=== PATIENT | female | born 1930 | race Caucasian/White ===

== ENCOUNTER → 2016-10-30 11:15 | Outpatient (CLI) | payer MEDICARE, BC ==
[~2016-10-30] VITALS: Ht 167.6 cm; Wt 59.1 kg
--- NOTE | ~2016-10-30 | OP ---
PATIENT NAME: NETTA BRITT MEDICAL RECORD: [id number] :[birth year] LOCATION:D.CAT ADMISSION DATE: SURGEON: YUE PRIETO MD DATE OF OPERATION: 10/30/2016 PREOPERATIVE DIAGNOSES: 1. End-of-life generator. 2. Hypertension. 3. Hypercholesterolemia. 4. Bradycardia. POSTOPERATIVE DIAGNOSES: 1. End-of-life generator. 2. Hypertension. 3. Hypercholesterolemia. 4. Bradycardia. PROCEDURE: Left subclavian vein pacemaker generator exchange. SURGEON: Yue Prieto MD REPORT OF PROCEDURE: The patient's left chest was prepped and draped in sterile fashion. A 20 mL of 1% lidocaine was infused into the surrounding tissues. A transverse skin incision was made overlying the pacemaker. We dissected pacemaker free from the underlying tissues including the indwelling leads. These leads were removed from the pacemaker and tested and showed to be working appropriately. The leads were placed into a new pacemaker. The pacemaker was then placed in to the subcutaneous pouch. This was sutured into place with a single 0 Tycron. The subcutaneous tissues were irrigated out and then reapproximated with interrupted 3-0 Vicryls and the skin was closed with running subcutaneous 5-0 Monocryl. COMPLICATIONS: None. CONDITION: Stable. ANESTHESIA: Local MAC. BLOOD LOSS: Minimal. TRANSINT:[id number] Voice Confirmation ID: [id number] DOCUMENT ID: [id number] YUE PRIETO MD CC: MIKEL GREEN M.D. [id number] DICTATION DATE: 10/30/16 1525 AGRICULTURE DEPARTMENT CHAIR: 10/30/162007 [facility] [address] [id number]
--- NOTE | ~2016-10-30 | HEMODYNAMI ---
PATIENT:NETTA BRITT MEDICAL RECORD: [id number] : [birth year] LOCATION:MEG ADMISSION DATE: 10/30/16 Generatedon:10/30/201615:24 Patient name: NETTA BRITT Patient #: [id number] SSN: : Date of study: 10/30/2016 Page: Of Hemodynamic Procedure Report Patient Data Patient Demographics Procedure consent was obtained First Name: NETTA Gender: Female Last Name: BALWINDER : 1930 [facility] Initial: Lorrie Age: 86 year(s) Patient #: [id number] Race: Unknown Additional ID: [id number] Contact details Address: [address] [place] [address] [address] State: [place] City: [facility] [place] Zip code: [address] Past Medical History Allergies Allergen Reaction Date Comments Reported Sulfa drugs 10/30/2016 Admission Admission Data Admission Date: 10/30/2016 Admission Time: 11:15 Procedure Procedure Types Cath Procedure Diagnostic Procedure PPM/ICD Permanent Pacer Generator Exg. Miscellaneous Procedures Moderate Sedation up to 30 minutes Procedure Description Procedure Date Procedure Date: 10/30/2016 Procedure Start Time: 14:50 Procedure Staff Name Function Chetan Ferguson MD Performing Physician Bandar Poole MD Assisting physician Nakita Ashton RT Scrub Wm Sterling RN Nurse Salma Machuca RT Monitor Procedure Data Cath Procedure Estimated blood loss: 5 ml Procedure Medications Medication Administration Route Dosage Ancef (1Gm/50ml NS) I.V.P.B 1 g Ancef Irrigation Topical 1 g (1gm/500ml NS) Lidocaine 1% with added to field 20 ml Epi Bupivacaine 0.5% 10 ml 0.9% NaCl I.V. Versed I.V. 1 mg Fentanyl I.V. 50 mcg Versed I.V. 1 mg Fentanyl I.V. 50 mcg Hemodynamics Rest Heart Rate: 65 (bpm) Snapshots Pre Cath Intra NCS Post Cath Vital Signs Time Heart Resp SPO2 NIBP (mmHg) Rhythm Pain Sedation Rate (ipm) (%) Status Level (bpm) 14:53:18 65 16 99 152/73(123) NSR 0 (11) 10(A) , No pain 14:57:38 65 14 98 143/72(110) NSR 0 (11) 10(A) , No pain 15:01:50 64 13 94 144/79(108) NSR 0 (11) 10(A) , No pain 15:06:08 65 15 96 119/58(88) NSR 0 (11) 9(A) , No pain 15:10:24 60 8 93 124/53(98) NSR 0 (11) 9(A) , No pain 15:14:40 60 15 99 132/56(101) NSR 0 (11) 9(A) , No pain 15:19:02 60 16 99 127/47(90) NSR 0 (11) 9(A) , No pain 15:23:22 55 16 100 129/50(105) NSR 0 (11) 10(A) , No pain Medications Time Medication Route Dose Verified Delivered Reason Notes Effecti veness by by 14:51:11 Ancef I.V.P.B 1 g Advent Buffie used for (1Gm/50ml Virgilio Sterling RN procedure NS) 14:55:19 Ancef Topical 1 g Advent Buffie used for Irrigation Virgilio Sterling RN procedure (1gm/500ml NS) 14:55:27 Lidocaine added 20 ml Advent Advent for local 1% with Epi to Virgilio Poole MD anesthetic field 15:00:48 Bupivacaine on 10 ml Advent Advent for local 0.5% field. Virgilio Poole MD anesthetic 15:01:01 0.9% NaCl I.V. kvo Advent Buffie Per ml/hr Virgilio Sterling RN physician 15:01:07 Versed I.V. 1 mg Advent Buffie for Virgilio Sterling RN sedation 15:01:13 Fentanyl I.V. 50 Advent Buffie for mcg Virgilio Sterling RN sedation 15:05:53 Versed I.V. 1 mg Advent Buffie for Virgilio Sterling RN sedation 15:08:35 Fentanyl I.V. 50 Advent Buffie for mcg Virgilio Sterling RN sedation Procedure Log Time Note 14:35:39 Salma Counts RT(R) sent for patient. Start room use. 14:51:11 Ancef (1Gm/50ml NS) 1 g I.V.P.B was administered by Wm Sterling RN; used for procedure; 14:51:46 Time tracking: Regular hours 14:51:49 Plan of Care:Hemodynamics will remain stable., Cardiac rhythm will remain stable., Comfort level will be maintained., Respiratory function will remain adequate., Patient/ family verbilizes understanding of procedure., Procedure tolerated without complication., Recovers from procedure without complications.. 14:51:58 Patient received from Pre/Post Procedure Room to CCL 3 Alert and oriented. Tansferred to table in Supine position. 14:51:59 Warm blankets applied, and veda hugger turned on for patient comfort. 14:51:59 Correct patient and procedure confirmed by team. 14:52:01 Signed procedure consent form obtained from patient. 14:52:01 ECG and BP/O2 sat monitors applied to patient. 14:52:02 Vital chart was started 14:52:03 Full Disclosure recording started 14:52:07 Rhythm: paced 14:52:14 H&P Date Dictated: 10/25/2016 Within 30 days and on chart., H&P Addendum completed by physician on day of procedure. (MUST COMPLETE FOR ALL OUTPATIENTS). 14:52:16 Pre-procedure instructions explained to patient. 14:52:17 Pre-op teaching completed and patient verbalized understanding. 14:52:18 Family in patients room. 14:52:34 Patient NPO since Midnight. 14:52:39 Patient allergic to Sulfa drugs 14:52:42 Is the patient allergic to Iodine/contrast media? No. 14:52:45 Is patient on blood thinner?No 14:52:47 Patient diabetic? No. 14:52:50 Previous problem with sedation/anesthesia? No ? 14:52:51 Snore? No 14:52:52 Sleep apnea? No 14:52:53 Deviated septum? No 14:52:54 Opens mouth fully? Yes 14:53:01 Sticks out tongue? Yes 14:53:02 Airway obstruction? No ? 14:53:04 Dentures? No ? 14:53:42 Patient pain scale 0/10 ?. 14:53:49 IV patent on arrival in left hand with 0.9% NaCl at KVO. 14:53:52 Lab results completed and on chart. 14:53:57 Left chest area was prepped with chlora-prep and draped in sterile fashion 14:53:58 Alarms reviewed by R. N. 14:53:58 Sharps counted by scrub and verified by R.N. 14:55:19 Ancef Irrigation (1gm/500ml NS) 1 g Topical was administered by Wm Sterling RN; used for procedure; 14:55:27 Lidocaine 1% with Epi 20 ml added to field was administered by Bandar Poole MD; for local anesthetic; 14:56:40 Final Timeout: patient, procedure, and site verified with staff and physician. All members of the team are in agreement. 14:56:46 Left chest site verified by team. 14:56:50 Physical assessment completed. ASA score P 2 - A patient with mild systemic disease as per Bandar Poole MD. 14:56:53 Sedation plan: IV Moderate Sedation Versed, Fentanyl 14:57:00 Use device set Pacemaker Set 14:57:07 Cautery Tip Bias Binding Cutter opened to sterile field. 14:57:08 Cautery Pushbutton Pencil opened to sterile field. 14:57:21 3.0 Vicryl Single Pack [id number] opened to sterile field. 14:57:31 5.0 Monocryl PS2 [id number] opened to sterile field. 14:57:44 Medtronic labor union business representative Jaylon Gamaoe present for procedure. 14:57:55 Pre sharps counted by scrub and verified by RN: Sutures: 2 Sponges: 5 Stick needles: 0 Skin needles: 2 Blade: 1 Cautery: 1 14:57:58 Grounding pad site Left thigh. 14:57:59 Grounding pad site free from injury. 14:59:38 Baseline sample Acquired. 15:00:02 Lidocaine 1% w/epi and Bupivacaine 0.5% to left subclavicular area by Bandar Poole MD. 15:00:18 Medtronic Adapta PPM Dual Generator opened to sterile field. 15:00:48 Bupivacaine 0.5% 10 ml on field. was administered by Bandar Poole MD; for local anesthetic; 15:01:01 0.9% NaCl kvo ml/hr I.V. was administered by Wm Sterling RN; Per physician; 15:01:07 Versed 1 mg I.V. was administered by Wm Sterling RN; for sedation; 15:01:13 Fentanyl 50 mcg I.V. was administered by Wm Sterling RN; for sedation; 15:02:15 Incision made to left subclavicular area. 15:02:18 Generator pocket made/opened. 15:05:53 Versed 1 mg I.V. was administered by Wm Sterling RN; for sedation; 15:05:57 PPM Dual was removed.. 15:08:35 Fentanyl 50 mcg I.V. was administered by Wm Sterling RN; for sedation; 15:08:56 Ventricular lead tested. 15:09:13 Atrial lead tested. 15:09:50 PPM Dual was attached to lead(s) and inserted into pocket. 15:11:36 2.0 Ticron Multipack opened to sterile field. 15:11:45 Generator was sutured in place with 2-0 ticron. 15:11:47 5 suture needles added to table. 15:12:25 Device pocket was irrigated with Ancef. 15:12:53 Subcutaneous closure was completed with 3-0 vicryl. 15:14:12 Parameters-- Generator: Mode: AAIR<=>DDDR. Lower Rate: 60bpm. Upper Rate: 130bpm. 15:14:39 Parameters--Ventricular P/R Wave: 5.9mV. Current: 1.6mA; Threshold: 1.0V; Impedence: 721OHMS. 15:14:54 Parameters--Atrial P/R Wave: 1.7mV. Current: 2.0mA; Threshold: 0.7V; Impedence: 634OHMS. 15:15:04 Skin closure was completed with 5-0 monocryl. 15:15:08 Lt Chest incision was dressed with Mepilex dressing. 15:15:21 Mepilex Dressing opened to sterile field. 15:16:36 Post sharps counted by scrub and verified by RN: Sutures: 7 Sponges: 5 Stick needles: 0 Skin needles: 2 Blade: 1 Cautery: 1 15:18:55 Procedure ended.(Physican Out) 15:21:06 Sharps counted by scrub and verified by R.N. 15:21:07 Insertion/operative site no bleeding no hematoma. 15:21:14 Post Chest area:stable, clean and dry 15:21:22 Post-procedure physical assessment completed. ASA score P 2 - A patient with mild systemic disease as per aBndar Poole MD. 15:21:26 Post procedure rhythm: unchanged. 15:21:30 Estimated blood loss: 5 ml 15:21:31 Post procedure instruction explained to patient.Patient verbalizes understanding. 15:21:31 Patient needs reinforcement of post procedure teaching. 15:21:39 Procedure type changed to Cath procedure, Diagnostic procedure, PPM/ICD, Permanent Pacer Generator Exg., Miscellaneous Procedures, Moderate Sedation up to 30 minutes 15:21:44 See physician's report for complete and final results. 15:23:46 Procedure and supply charges have been captured, reviewed, submitted and are correct. 15:24:25 Vital chart was stopped 15:24:27 Report given to Pre/Post Procedure Room. 15:24:30 Patient transfered to Pre/Post Procedure Room with Stretcher. 15:24:33 End room use (Document Last) Device Usage Item Name Manufacture Quantity Catalog Hospital Part Current Minimal L ot# / Number Charge Number Stock Stock Serial# Code Cautery Microtek 1 [id number] 5 [employer] Bias Binding Cutter Cautery Microtek 1 [id number] 5 Pushbutton [employer] Pencil 3.0 Vicryl Ethicon 1 [id number] 5 Single Pack [id number] 5.0 Ethicon 1 [id number] [id number] 5 Monocryl PS2 [id number] Medtronic Medtronic 1 [id number] 5 S N Adapta PPM N [id number] Dual E xp: Generator 1 02-25-2016 2.0 Ticron Ethicon 9 [id number] [id number] 04962 172269 5 Multipack Mepilex Cardinal 1 [id number] [id number] [id number] 5 [facility] Signature Audit [place] Stage Time Signature Unsigned Intra-Procedure 10/30/2016 Salma 3:24:47 PM Counts RT(R) Signatures Monitor : Salma Signature : Counts RT Date : Time : [address] [address] [place] [address]
[~2016-10-30 11:15] MED LIST: BAYER CHEWABLE81 MG PO; CALTRATE 600 M600 M1 PO; CLARITIN 10 MG10 MG PO; HYDROCHLOROTH12.5 M1 PO; HYDROCODON-ACE1 EAC7 PO; LISINOPRIL10 MG PO; MULTIPLE VITAMI1 TA1 PO; NITROSTAT0.3 MG SL; ZOCOR10 MG PO
[2016-10-30 11:47] VITALS: BP 138/60; Ht 167.6 cm; Wt 59.1 kg
[2016-10-30 11:56] LABS: HEMATOCRIT 35.8 % (36.0-48.0); HEMOGLOBIN 11.6 g/dL (12-16); MCH 30.7 pg (26.0-34.0); MCHC 32.4 g/dL (31.0-37.0); MCV 94.7 fL (80.0-100.0); MEAN PLATELET VOLUME 10.8 fL (7.4-10.4); RBC 3.78 10x6/uL (4.00-5.40); RDW 13.4 % (11.5-14.5); WBC 4.5 10x3/uL (4.8-10.8)
[2016-10-30 12:06] LABS: APTT 28.2 SECONDS (22.8-39.4); INR 1.07 (0.85-1.17); PROTIME 13.7 SECONDS (11.6-15.0)
[2016-10-30 12:07] LABS: ANION GAP 12.2 mmol/L (8-16); CARBON DIOXIDE 27.1 mmol/L (21.0-32.0); CREATININE - SERUM 1.5 mg/dL (0.6-1.3); POTASSIUM - SERUM 4.3 mmol/L (3.5-5.1)
[2016-10-30 12:13] LABS: CALCIUM 9.5 mg/dL (8.5-10.1)
--- NOTE | 2016-10-30 15:39 | NUR ---
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 VSS WITH PAIN DENIED. WILL MONITOR
--- NOTE | 2016-10-30 15:52 | NUR ---
PACED AT 50 CHEST PAIN DENIED DSG CDI NO BLEEDING NOTED. DR BRITT AT BEDSIDE.
--- NOTE | 2016-10-30 16:14 | NUR ---
ANATOLIY WITH CLAUDY BUTLER AT BEDSIDE TO ADJUST PACE MAKER AT DR BRITT REQUEST.
--- NOTE | 2016-10-30 16:26 | NUR ---
PIV REMOVED WITH DRESSING APPLIED. PATIENT UP TO GET DRESSED FOR DISCHARGE. VERBAL AND WRITTEN DISCHARGE GONE OVER WITH PATIENT AND SON. CHEST PAIN IS DENIED. LEFT VIA WC TO PARKING FOR TRANSPORT HOME NO DISTRESS
== END | disposition home or self-care (01) ==
LOC: D.CATH 11:15
PROVIDERS: Internal Medicine Cardiovascular Disease
DX: Z45.010 Encounter for checking and testing of cardiac pacemaker pulse generator [battery] (principal); I25.10 Atherosclerotic heart disease of native coronary artery without angina pectoris; I10 Essential (primary) hypertension; I49.5 Sick sinus syndrome; Z01.812 Encounter for preprocedural laboratory examination

== ENCOUNTER 2017-02-25 17:21 | Inpatient (IN) | payer MEDICARE, BC ==
[~2017-02-25] VITALS: Ht 170.2 cm; Wt 66.9 kg
--- NOTE | ~2017-02-25 | HP ---
PATIENT: NETTA BRITT MEDICAL RECORD: [id number] ACCOUNT: [id number] LOCATION:D.MS [id number] : [birth year] ADMISSION DATE: 02/25/17 HISTORY AND PHYSICAL EXAMINATION REASON FOR ADMISSION: Syncopal episode, hypotension and dehydration. HISTORY OF PRESENT ILLNESS: The patient is an 86-year-old female who a few months ago moved to the [place] from [place], [place]. She had continual decline in her memory and her sons felt she was better living here closer to them. She has had a gradual weight loss since that time, losing about 10 pounds prior to moving here. In a structured environment, she has had a better appetite. She was found by one of her sons 3 days ago in her apartment on the floor covered in blankets. She was urinary incontinent. She could not tell him what had happened. EMS came, but she refused to go to the hospital. She was hydrated by her family. Next day, she actually felt better and got up and walked to the diner to eat. Yesterday, she stayed in bed all day long, was very weak and could not get out of bed. She was found to be urinary incontinence again. Her son was concerned she had a UTI. She was brought to the office today and was able to produce urine. Her skin turgor was poor. Her pressure was 80/60. She additionally has a bruise on her glabella from her fall and was confused about recent events. Her creatinine returned at 1.77, BUN of 32. She is now being admitted for hydration, treatment of her hypertension and further evaluation. PAST MEDICAL HISTORY: Senile dementia, hypertension, hyperlipidemia, and osteoarthritis. She had an infected right knee replacement in 2010 and required LTAC stay for IV antibiotics. PAST SURGICAL HISTORY: Right total knee replacement with removal of hardware. SOCIAL HISTORY: She has been for several years and is living alone up until the last 6 months and moved here to be closer to family. She is a lifelong nonsmoker, nondrinker, does not use any illicit drugs. HOME MEDICATIONS: Simvastatin 10 mg with evening meal, fosinopril 10 mg daily, and HCTZ 12.5 mg p.o. q.a.m. ALLERGIES: MORPHINE AND SULFA. FAMILY HISTORY: Noncontributory. REVIEW OF SYSTEMS: CONSTITUTIONAL: About 10-15 pound weight loss due to poor appetite. Denies recent fever. HEENT: No recent visual change, sinus congestion, or sore throat. She has good hearing. She does wear glasses to read. Denies headache. RESPIRATORY: Denies shortness of breath or sputum production. CARDIAC: Denies chest pain or increasing peripheral edema. GASTROINTESTINAL: No nausea, vomiting, change in stools or blood per rectum. GENITOURINARY: Urinary incontinence with some foul odor to her urine recently. GYNECOLOGICAL: No vaginal delivery. MUSCULOSKELETAL: She has generalized arthralgias, but no sciatica symptoms. INTEGUMENT: No rash or itching. She does have as mentioned bruise on her forehead from a recent fall. HISTORY AND PHYSICAL [id number] NETTA BRITT NEUROLOGIC: She is oriented to person, but not place and time. She confused my mother who she knows with my . No history of seizures, vascular headaches, or stroke. PHYSICAL EXAMINATION: VITAL SIGNS: Blood pressure was 80/60 sitting, heart rate 99. She is afebrile. Weighs 124.4 pounds. HEENT: Normocephalic. Eyes are clear. Pupils are reactive. She has a bruise over her glabella. NECK: Supple, without bruits or JVD. CHEST: Fine crackles in the bases. No wheeze. HEART: Regular rate and rhythm with a faint II/ systolic ejection murmur in aortic area. ABDOMEN: Soft. EXTREMITIES: No CC&E. She has well-healed scar over her right anterior knee compartment. NEUROLOGIC: She is oriented to person, but not place and time. Cannot subtract serial 7s. She has no obvious motor deficits except for weakness in her quadriceps making difficult for her to stand. No abnormal reflexes are elicited. LABORATORY DATA: Her BUN is 32, creatinine 1.77, calcium is high at 10. Urine is pending. CBC is normal. ASSESSMENT: 1. Syncopal episode with head injury. 2. Altered mental status. 3. Vascular dementia. 4. Hypotension, symptomatic. 5. Urinary incontinence with possible UTI. 6. History of osteoarthritis of right knee with infected joint. 7. Postmenopausal. 8. Weight loss. PLAN: The patient will be admitted to the hospital for fluid challenge to correct her dehydration and her hypotension. We will hold her hypertensives currently. CT scan of the brain, further workup pending clinical course. TRANSINT:[id number] Voice Confirmation ID: [id number] DOCUMENT ID: [id number] MIKEL DOSS MD at 0342 CC: [id number] DICTATION DATE: 02/25/171707 MARINE PILOT: 02/25/17 1756 ADM [address] [place] [address]
[2017-02-25 18:47] VITALS: BP 120/41; BMI 18.8
[2017-02-25 21:17] VITALS: BP 136/41
[2017-02-26] VITALS (9 sets, daily range): BP systolic 98–160; BP diastolic 42–56; Ht 170.2 cm; Wt 66.9 kg
[2017-02-26 01:20] LABS: APPEARANCE CLOUDY (CLEAR); BILIRUBIN NEGATIVE (NEGATIVE); COLOR YELLOW (YELLOW); GLUCOSE NEGATIVE (NEGATIVE); KETONE NEGATIVE (NEGATIVE); NITRITE POSITIVE (NEGATIVE); PROTEIN 1+ mg/dL (NEGATIVE); UROBILINOGEN NORMAL (NORMAL)
[2017-02-26 01:21] LABS: BACTERIA MANY /hpf (NONE SEEN); EPITHELIAL CELLS 0-5 /hpf (0-5)
[2017-02-26 05:43] LABS: ANION GAP 9.4 mmol/L (8-16); CALCIUM 8.9 mg/dL (8.5-10.1); CARBON DIOXIDE 28.6 mmol/L (21.0-32.0); CREATININE - SERUM 1.6 mg/dL (0.6-1.3)
[2017-02-26 05:45] LABS: HEMATOCRIT 31.7 % (36.0-48.0); HEMOGLOBIN 9.9 g/dL (12-16); MCH 29.6 pg (26.0-34.0); MCHC 31.2 g/dL (31.0-37.0); MCV 94.6 fL (80.0-100.0); MEAN PLATELET VOLUME 11.1 fL (7.4-10.4); PLATELET COUNT 228 10x3/uL (130-400); RBC 3.35 10x6/uL (4.00-5.40); RDW 13.4 % (11.5-14.5); WBC 4.3 10x3/uL (4.8-10.8)
[2017-02-26 07:37] LABS: EOSINOPHILS 3 % (0-7); LYMPHOCYTES 42 % (15-50); MONOCYTES 17 % (2-11); NEUTROPHILS 38 % (40-80); PLATELET ESTIMATE NORMAL; PLATELET MORPHOLOGY GIANT PLTS PRESENT; ROULEAUX OCC
[2017-02-27 04:33] VITALS: BP 165/52
[2017-02-27 06:07] LABS: BASOPHILS 0.6 % (0-2); EOSINOPHILS 5.4 % (0-7); HEMATOCRIT 31.5 % (36.0-48.0); HEMOGLOBIN 9.9 g/dL (12-16); IMMATURE GRANULOCYTES 0.3 % (0-5); LYMPHOCYTES 35.8 % (15-50); MCH 29.6 pg (26.0-34.0); MCHC 31.4 g/dL (31.0-37.0); MCV 94.3 fL (80.0-100.0); MEAN PLATELET VOLUME 11.1 fL (7.4-10.4); MONOCYTES 17.8 % (2-11); NEUTROPHILS 40.1 % (40-80); PLATELET COUNT 219 10x3/uL (130-400); RBC 3.34 10x6/uL (4.00-5.40); RDW 13.3 % (11.5-14.5); WBC 3.5 10x3/uL (4.8-10.8)
[2017-02-27 06:10] LABS: % SATURATION 15 % (15-55); IRON 31 ug/dl (35-150); TOTAL IRON BIND CAPACITY 199 ug/dl (260-445); UNSAT IRON BIND CAPACITY 168 ug/dl (150-375)
[2017-02-27 06:11] LABS: ALBUMIN 2.5 g/dL (3.4-5.0); ANION GAP 10.1 mmol/L (8-16); BILIRUBIN - DIRECT 0.07 mg/dL (0.00-0.30); BILIRUBIN - INDIRECT 0.15 mg/dL (0.00-1.00); BILIRUBIN - TOTAL 0.22 mg/dL (0.2-1.3); CALCIUM 9.2 mg/dL (8.5-10.1); CARBON DIOXIDE 27.1 mmol/L (21.0-32.0); POTASSIUM - SERUM 4.2 mmol/L (3.5-5.1); PROTEIN - SERUM 5.3 g/dL (6.4-8.2)
[2017-02-27 06:12] LABS: FOLATE (FOLIC ACID) - SERUM 15.4 ng/mL (>3.0)
[2017-02-27 06:40] LABS: CREATININE - SERUM 1.1 mg/dL (0.6-1.3)
[2017-02-27 07:54] VITALS: BP 157/61
[2017-02-27 11:38] VITALS: BP 150/49
[2017-02-27 15:55] VITALS: BP 147/52
[2017-02-27 22:12] VITALS: BP 122/33
[2017-02-28 01:32] VITALS: BP 131/35
[2017-02-28 06:33] VITALS: BP 137/41
[2017-02-28 09:20] VITALS: BP 118/43
[2017-02-28 12:20] VITALS: BP 116/46
[2017-02-28 16:34] VITALS: BP 120/48
[2017-02-28 20:54] VITALS: BP 147/47
[2017-03-01 00:53] VITALS: BP 157/67
[2017-03-01 04:00] VITALS: BP 152/87
[2017-03-01] MEDS ORDERED: Levaquin PO (07:40)
[2017-03-01] MEDS ORDERED: FERROUS SULFAT325 MG PO (07:41)
[2017-03-01 08:34] VITALS: BP 122/44
== END 2017-03-01 15:00 | DRG 689 ==
LOC: D.MS 17:21
PROVIDERS: Family Medicine
DX: N39.0 Urinary tract infection, site not specified (principal); G93.41 Metabolic encephalopathy; Z68.1 Body mass index [BMI] 19.9 or less, adult; E44.0 Moderate protein-calorie malnutrition; I95.9 Hypotension, unspecified; E86.0 Dehydration; R55 Syncope and collapse; R32 Unspecified urinary incontinence; F03.90 Unspecified dementia, unspecified severity, without behavioral disturbance, psychotic disturbance, mood disturbance, and anxiety; F01.50 Vascular dementia, unspecified severity, without behavioral disturbance, psychotic disturbance, mood disturbance, and anxiety; N95.9 Unspecified menopausal and perimenopausal disorder; R63.4 Abnormal weight loss; S09.90XA Unspecified injury of head, initial encounter; X58.XXXA Exposure to other specified factors, initial encounter; D63.8 Anemia in other chronic diseases classified elsewhere

== ENCOUNTER 2017-03-01 14:34 | Inpatient (IN) | payer MEDICARE, BC ==
[~2017-03-01] VITALS: Ht 170.2 cm; Wt 58.5 kg
--- NOTE | ~2017-03-01 | RHP ---
PATIENT: NETTA BRITT MEDICAL RECORD: [id number] ACCOUNT: [id number] LOCATION:ROXANA [id number] : [birth year] ADMISSION DATE: 03/01/17 REHABILITATION HISTORY AND PHYSICAL EXAMINATION POST ADMISSION PHYSICIAN EXAMINATION DATE OF ADMISSION: 03/01/2017 ADMITTING DIAGNOSIS: Debility secondary to urinary tract infection. HISTORY OF PRESENT ILLNESS: The patient admitted to inpatient rehabilitation for debility secondary to Escherichia coli urinary tract infection. She is an 86-year-old female patient who few months ago has moved to [facility] from [place]. She has had a continued decline in her memory. Her sons felt that she was better living here closer to them. She has had a gradual weight loss since that time losing about 10 pounds. In a structured environment, she has had a better appetite. She was found by one of her sons, 3 days prior to hospital admit on 02/25/2017 in her apartment, on the floor, covered in blanket. She was incontinent of urine at the time. She cannot tell them what happened. EMS came, but she refused to go to the hospital. She was hydrated by her family. Next day, she actually felt better, got up and walked to dinner to eat. Yesterday, she stayed in bed all day long, was very weak and cannot get out of bed. She is found to be incontinent of urine. Again, her son was concerned for UTI, brought to the office on 02/25/2017, was able to produce some urine. Skin turgor was poor. Blood pressure was 80/60. She additionally had a bruise on her glabella from a fall that she had at home. She was admitted for hydration and treatment of her hypertension. On further evaluation, she was found to have UTI and culture sensitivity of E. coli, was being treated with antibiotic therapy. She is living in her own apartment, was moderately independent with use of rolling walker and independent with ADLs. Her confusion has somewhat cleared. She has not had any urinary incontinence. She is getting up to void at times. She and her family would like to get her back to [facility] and back to her prior level of functioning and better if possible. Comorbidities include hypotension, dehydration, followed altered mental, sick sinus syndrome, dementia, anemia and UTI. PAST MEDICAL HISTORY: Significant for cataracts, urinary incontinence, UTIs, skin cancer, senile dementia, hypertension, hyperlipidemia, osteoarthritis, constipation. PAST SURGICAL HISTORY: Includes right knee total replacement and then removal of hardware, angioplasty, pacemaker, appendectomy, right wrist repair, three left knee repairs, colon resection and hysterectomy. ALLERGIES: No known drug allergies. CURRENT MEDICATIONS: Protonix 40 mg daily; Flonase nasal spray daily; Proscar 5 mg daily; enoxaparin 40 mg daily; Zithromax 500 mg daily; she is on an electrolyte replacement protocol at this time; Flomax 0.4 mg at bedtime; Tamiflu 75 mg b.i.d.; Singulair 10 mg at bedtime; Solu-Medrol 40 mg IV every 12 hours; DuoNeb updrafts; Mucinex D 1 b.i.d.; Phenergan with codeine as needed; Pulmicort 0.5 mg b.i.d.; benzonatate 200 mg t.i.d. and polyethylene glycol 17 grams in 8 ouces of water daily. HABITS: No alcohol or tobacco use. HISTORY AND PHYSICAL [id number] NETTA BRITT FAMILY HISTORY: Noncontributory. SOCIAL HISTORY: The patient wants to returned back home to [facility]. REVIEW OF SYSTEMS: Generally does complain of weakness. She denies cold, cough, congestion. She denies chest pain. PHYSICAL EXAMINATION: VITAL SIGNS: Stable, afebrile. GENERAL: Alert female, in no distress upon exam. HEENT: Normocephalic and atraumatic. Mucosa is moist. NECK: Supple. No organomegaly. LUNGS: Clear at this time. HEART: Regular rate and rhythm. ABDOMEN: Benign. EXTREMITIES: No clubbing, cyanosis or edema. NEUROLOGIC: Intact. In questioning at this time, she does obviously have some problems with short-term memory loss. LABORATORY DATA: Her white count is 7.4, H&H 13 and 38, platelet count is noted to be 167. Her sodium is 135, potassium 4.2, BUN and creatinine of 24 and 1.0, and blood sugar 75. ASSESSMENT: This is an 86-year-old female patient admitted to rehab with a working diagnosis of debility secondary to UTI. The patient has potential to make improvement in at least 2 of the following multidisciplinary therapies including, but not limited to physical, occupational, respiratory, speech, nutritional services, prosthetics and orthotics. Given her complex condition and risk for more complications, rehabilitation services cannot be provided at a lower level of care such as a jail facility. PLAN: 1. Admit to [facility] for intensive inpatient therapy to include the following disciplines: A. Physical therapy to improve gait, all transfer skills and bed mobility to a modified independent level. B. Occupational therapy to improve activities of daily living to a modified independent level. C. Case management to assist with discharge planning. D. Nutrition to assist with nutritional needs. E. Rehabilitation nursing to assist in monitoring the patient's underlying medical conditions and to assist with any type of bowel or bladder management. 2. The patient's current medication and medical care will be continued. 3. The patient will be placed on standard fall precautions. 4. The patient's estimated length of stay is approximately 7 to 10 days. 5. We will discuss this patient during care team staff meeting this week. TRANSINT:[id number] Voice Confirmation ID: [id number] DOCUMENT ID: [id number] SILVIO notes whether there has been none or any medical/functional HISTORY AND PHYSICAL [id number] NETTA BRITT change since admission: - No change since PAS SILVIO attests patient continues to be appropriate for IRF: - Continues to meet Criteria for IRF ROSANNE BRYSON MD at 1020 CC: [id number] DICTATION DATE: 03/02/17 1139 LICENSED APPRAISER: 03/02/17 1257 ADM IN [facility] [address] [id number]
[~2017-03-01 14:34] MED LIST changes: +FERROUS SULFAT325 MG PO; +Levaquin PO
[2017-03-01 16:24] VITALS: BP 121/42; BMI 20.2
[2017-03-01 19:00] VITALS: BP 103/46
[2017-03-02 07:09] LABS: BASOPHILS 0.4 % (0-2); EOSINOPHILS 3.5 % (0-7); HEMATOCRIT 33.2 % (36.0-48.0); HEMOGLOBIN 10.6 g/dL (12-16); IMMATURE GRANULOCYTES 0.2 % (0-5); LYMPHOCYTES 33.5 % (15-50); MCH 29.4 pg (26.0-34.0); MCHC 31.9 g/dL (31.0-37.0); MCV 92.2 fL (80.0-100.0); MEAN PLATELET VOLUME 10.6 fL (7.4-10.4); MONOCYTES 18.3 % (2-11); NEUTROPHILS 44.1 % (40-80); PLATELET COUNT 255 10x3/uL (130-400); RDW 13.2 % (11.5-14.5); WBC 5.1 10x3/uL (4.8-10.8)
[2017-03-02 07:18] LABS: ANION GAP 13.2 mmol/L (8-16); CALCIUM 9.9 mg/dL (8.5-10.1); CARBON DIOXIDE 27.3 mmol/L (21.0-32.0); CREATININE - SERUM 1.1 mg/dL (0.6-1.3); POTASSIUM - SERUM 4.5 mmol/L (3.5-5.1)
[2017-03-02 08:51] VITALS: BP 158/48
[2017-03-02 11:11] VITALS: Ht 170.2 cm; Wt 58.5 kg
[2017-03-02 20:00] VITALS: BP 159/64
[2017-03-03 08:07] VITALS: BP 148/52
[2017-03-03 19:54] VITALS: BP 107/43
[2017-03-04 07:45] VITALS: BP 136/59
[2017-03-04 20:50] VITALS: BP 115/38
[2017-03-05 08:12] VITALS: BP 112/95
[2017-03-05 21:25] VITALS: BP 123/40
[2017-03-06 07:18] LABS: BASOPHILS 0.2 % (0-2); EOSINOPHILS 3.3 % (0-7); HEMOGLOBIN 10.8 g/dL (12-16); IMMATURE GRANULOCYTES 0.4 % (0-5); LYMPHOCYTES 31.2 % (15-50); MCH 29.8 pg (26.0-34.0); MCHC 31.8 g/dL (31.0-37.0); MCV 93.7 fL (80.0-100.0); MEAN PLATELET VOLUME 10.4 fL (7.4-10.4); MONOCYTES 22.1 % (2-11); NEUTROPHILS 42.8 % (40-80); PLATELET COUNT 255 10x3/uL (130-400); RBC 3.63 10x6/uL (4.00-5.40); RDW 13.6 % (11.5-14.5); WBC 4.6 10x3/uL (4.8-10.8)
[2017-03-06 07:48] LABS: ANION GAP 10.6 mmol/L (8-16); CARBON DIOXIDE 29.7 mmol/L (21.0-32.0); CREATININE - SERUM 1.3 mg/dL (0.6-1.3); POTASSIUM - SERUM 4.3 mmol/L (3.5-5.1)
[2017-03-06 09:16] VITALS: BP 145/49
[2017-03-06 22:00] VITALS: BP 119/39
[2017-03-07 07:57] VITALS: BP 133/48
[2017-03-07 21:05] VITALS: BP 132/50
[2017-03-08 05:53] LABS: BASOPHILS 0.2 % (0-2); EOSINOPHILS 3.1 % (0-7); HEMATOCRIT 31.8 % (36.0-48.0); HEMOGLOBIN 10.1 g/dL (12-16); IMMATURE GRANULOCYTES 0.2 % (0-5); LYMPHOCYTES 30.8 % (15-50); MCH 29.4 pg (26.0-34.0); MCHC 31.8 g/dL (31.0-37.0); MCV 92.7 fL (80.0-100.0); MEAN PLATELET VOLUME 10.3 fL (7.4-10.4); MONOCYTES 18.2 % (2-11); NEUTROPHILS 47.5 % (40-80); PLATELET COUNT 230 10x3/uL (130-400); RBC 3.43 10x6/uL (4.00-5.40); RDW 13.8 % (11.5-14.5); WBC 4.8 10x3/uL (4.8-10.8)
[2017-03-08 06:04] LABS: ANION GAP 9.9 mmol/L (8-16); CALCIUM 9.7 mg/dL (8.5-10.1); CARBON DIOXIDE 29.6 mmol/L (21.0-32.0); CREATININE - SERUM 1.3 mg/dL (0.6-1.3); POTASSIUM - SERUM 4.5 mmol/L (3.5-5.1)
[2017-03-08 07:43] VITALS: BP 148/73
[2017-03-08 20:30] VITALS: BP 96/45
[2017-03-09 08:25] VITALS: BP 150/51
[2017-03-09 19:45] VITALS: BP 99/44
[2017-03-10 08:00] VITALS: BP 155/64
[2017-03-10 20:05] VITALS: BP 117/47
[2017-03-11 08:00] VITALS: BP 142/74
[2017-03-11 19:30] VITALS: BP 109/43
[2017-03-12] MEDS ORDERED: PATIENT'S OWN MEDICA PO (09:20)
[2017-03-12 10:07] VITALS: BP 114/51
[2017-03-12 19:17] VITALS: BP 127/43
[2017-03-13 06:42] LABS: BASOPHILS 0.4 % (0-2); EOSINOPHILS 2.7 % (0-7); HEMATOCRIT 32.9 % (36.0-48.0); HEMOGLOBIN 10.6 g/dL (12-16); IMMATURE GRANULOCYTES 0.2 % (0-5); LYMPHOCYTES 34.7 % (15-50); MCH 29.6 pg (26.0-34.0); MCHC 32.2 g/dL (31.0-37.0); MCV 91.9 fL (80.0-100.0); MEAN PLATELET VOLUME 10.9 fL (7.4-10.4); MONOCYTES 15.7 % (2-11); NEUTROPHILS 46.3 % (40-80); PLATELET COUNT 254 10x3/uL (130-400); RBC 3.58 10x6/uL (4.00-5.40); RDW 13.7 % (11.5-14.5); WBC 4.8 10x3/uL (4.8-10.8)
[2017-03-13 06:47] LABS: ANION GAP 12.1 mmol/L (8-16); CALCIUM 9.6 mg/dL (8.5-10.1); CARBON DIOXIDE 27.4 mmol/L (21.0-32.0); CREATININE - SERUM 1.3 mg/dL (0.6-1.3); POTASSIUM - SERUM 4.5 mmol/L (3.5-5.1)
[2017-03-13 07:45] VITALS: BP 106/58
== END 2017-03-13 14:10 | disposition home health service (06) | DRG 947 ==
LOC: D.REHAB 14:34
PROVIDERS: Emergency Medicine
DX: R53.81 Other malaise (principal); G93.41 Metabolic encephalopathy; N39.0 Urinary tract infection, site not specified; I95.9 Hypotension, unspecified; E86.0 Dehydration; I49.5 Sick sinus syndrome; F03.90 Unspecified dementia, unspecified severity, without behavioral disturbance, psychotic disturbance, mood disturbance, and anxiety; B96.20 Unspecified Escherichia coli [E. coli] as the cause of diseases classified elsewhere; D63.8 Anemia in other chronic diseases classified elsewhere

== ENCOUNTER 2017-03-18 17:31 | Inpatient (IN) | payer MEDICARE, BC ==
[~2017-03-18] VITALS: Ht 170.2 cm; Wt 63.5 kg
--- NOTE | ~2017-03-18 | HP ---
PATIENT: NETTA BRITT MEDICAL RECORD: [id number] ACCOUNT: [id number] LOCATION:[facility] : [birth year] ADMISSION DATE: 03/18/17 HISTORY AND PHYSICAL EXAMINATION DATE OF ADMISSION: 03/18/2017 CHIEF COMPLAINT: Weakness and UTI. HISTORY OF PRESENT ILLNESS: This is an 86-year-old white female who was just admitted 3 weeks ago to [facility] for hypotension, dehydration, and found to have urinary tract infection. She was treated appropriately and then discharged to the inpatient rehab and then discharged on 03/13/2017, to the [facility] area. Over the last couple of days, she has had increased weakness. She is not wanting to get out of bed. She required assistance just getting up from her chair and walking. She is also complaining of low back pain, which is a new finding. She has never had any back pain. She was brought to the Emergency Department this afternoon where most of her lab was fairly stable; however, urinalysis did show UTI. She had CT of her brain showing atrophy and CT of T spine and L spine showed what looked like old appearing compression fractures at T1 and at T10. Her BUN was elevated a little bit more than normal. Her creatinine remains about the same around 1.5. She is admitted for weakness and UTI and back pain. PAST MEDICAL HISTORY: Senile dementia, hypertension, hyperlipidemia, osteoarthritis. She has had an ulcer in the transverse colon. PAST SURGICAL HISTORY: She had a left total knee replacement, then had an infection of the hardware requiring removal of hardware 6 weeks of IV antibiotics, and a redo left knee replacement. She has also suffered a right hip fracture. She had about a foot of her transverse colon removed for the ulceration. She has had a complete hysterectomy and bladder suspension. She also has a history of sick sinus syndrome and is now on her fourth generator. It was just replaced last year by Dr. Ferguson. CURRENT HOME MEDICATIONS: Includes Simvastatin 10 mg daily, fosinopril 10 mg daily, Claritin 10 mg once a day, ferrous sulfate 325 mg once a day, actually lisinopril 10 mg once a day, Caltrate 600 mg once a day, multivitamin once a day. She has been tried on Myrbetriq 25 mg once a day for overactive bladder. ALLERGIES: SULFA AND MORPHINE. SOCIAL HISTORY: for almost 5 years, moved to [place] 10/10/2016, and now at the [facility] since 03/13/2017. FAMILY HISTORY: Mother in her mid 80s of congestive heart failure. Father of cancer of the eye. REVIEW OF SYSTEMS: GENERAL: She has had a 10-15 pound weight loss over the last few months. HEENT: No particular sinus or allergy problems. RESPIRATORY: No history of asthma, emphysema, or pneumonia. CARDIAC: She has a history of sick sinus syndrome and has a pacemaker. She actually did have one stent placed 7 or 8 years ago at [facility]. GASTROINTESTINAL: No diarrhea, constipation, no significant problems with HISTORY AND PHYSICAL [id number] NETTA BRITT reflux. GENITOURINARY: She had frequent urinary tract infections and required bladder suspension after a hysterectomy, but had really not had a significant number of UTIs till just recently. MUSCULOSKELETAL: She has arthralgias. NEUROLOGIC: Dementia as above. No history of migraine or seizures. PSYCHIATRIC: No depression or melancholia. PHYSICAL EXAMINATION: VITAL SIGNS: She is afebrile. Blood pressure 145/62, heart rate is paced in the 60s. GENERAL: She is pleasantly confused. She is oriented to self, to person, but not to place or time. HEENT: Generally unremarkable. NECK: Supple, no bruits. HEART: Regular rate and rhythm without murmur. LUNGS: Fairly clear. ABDOMEN: Soft, flat, nontender. BACK: She has generalized tenderness in the lower half of the back in the midline. Straight leg raises are negative. NEUROLOGIC: Again, she has worsening memory problems. LABORATORY DATA: Urine yellow and clear, 1+ leukocyte esterase. There are 10-25 white blood cells, moderate bacteria and there were surprising 5-10 epithelial cells as this was a cath specimen. Lactic acid 1.5. CBC with a white count 6300, hemoglobin 11.0, hematocrit 34.1. Basic metabolic panel is all okay except BUN is a little elevated at 45, creatinine is 1.5, which is about her baseline. Liver functions are all normal. CT of the lumbar spine was done showing chronic appearing anterior wedge deformities at T1 and T10. It appears there was a chronic-appearing fracture of the left posterior 10th and 9th ribs, moderate spinal canal stenosis at L2-L3 and L3-L4 and severe neural foraminal stenosis at L5-S1. CT of the thoracic spine showed chronic appearing anterior wedge deformity at T1. CT of the brain without contrast compared to previous CT done on 02/26/2017, showed no acute intracranial abnormality. There is advanced chronic microvascular ischemic changes and diffuse cerebral volume loss. ASSESSMENT: 1. Urinary tract infection with weakness, probable dehydration with elevated BUN and decreased p.o. intake. 2. Back pain with what appeared to be a chronic appearing compression fracture at T1 and T10. PLAN: IV antibiotics, gentle rehydration. Other tests and procedures as warranted. TRANSINT:[id number] Voice Confirmation ID: [id number] DOCUMENT ID: [id number] HISTORY AND PHYSICAL [id number] NETTA BRITT WILLIAM MD at 0847 CC: [id number] DICTATION DATE: 03/19/17 0112 VRT MECHANIC: 03/19/17 [id number] [place] [address]
[~2017-03-18 17:31] MED LIST changes: +PATIENT'S OWN MEDICA PO
[2017-03-18 18:12] LABS: BASOPHILS 0.2 % (0-2); EOSINOPHILS 0.2 % (0-7); HEMATOCRIT 34.1 % (36.0-48.0); IMMATURE GRANULOCYTES 0.2 % (0-5); LYMPHOCYTES 12.8 % (15-50); MCH 29.9 pg (26.0-34.0); MCHC 32.3 g/dL (31.0-37.0); MCV 92.7 fL (80.0-100.0); MEAN PLATELET VOLUME 10.5 fL (7.4-10.4); MONOCYTES 25.7 % (2-11); NEUTROPHILS 60.9 % (40-80); PLATELET COUNT 272 10x3/uL (130-400); RBC 3.68 10x6/uL (4.00-5.40); RDW 13.6 % (11.5-14.5); WBC 6.3 10x3/uL (4.8-10.8)
[2017-03-18 18:34] LABS: ALBUMIN 3.2 g/dL (3.4-5.0); ANION GAP 13.7 mmol/L (8-16); BILIRUBIN - TOTAL 0.36 mg/dL (0.2-1.3); CALCIUM 9.6 mg/dL (8.5-10.1); CARBON DIOXIDE 29.4 mmol/L (21.0-32.0); CREATININE - SERUM 1.5 mg/dL (0.6-1.3); POTASSIUM - SERUM 5.1 mmol/L (3.5-5.1); PROTEIN - SERUM 6.7 g/dL (6.4-8.2)
[2017-03-18 20:15] LABS: APPEARANCE CLEAR (CLEAR); BILIRUBIN NEGATIVE (NEGATIVE); COLOR YELLOW (YELLOW); GLUCOSE NEGATIVE (NEGATIVE); KETONE NEGATIVE (NEGATIVE); NITRITE NEGATIVE (NEGATIVE); PROTEIN NEGATIVE (NEGATIVE); UROBILINOGEN NORMAL (NORMAL)
[2017-03-18 20:17] LABS: BACTERIA MODERATE /hpf (NONE SEEN); RED CELLS - URINE OCC /hpf (0-5)
[2017-03-19 03:52] LABS: HEMATOCRIT 31.8 % (36.0-48.0); HEMOGLOBIN 10.2 g/dL (12-16); MCH 29.8 pg (26.0-34.0); MCHC 32.1 g/dL (31.0-37.0); MEAN PLATELET VOLUME 10.5 fL (7.4-10.4); PLATELET COUNT 270 10x3/uL (130-400); RBC 3.42 10x6/uL (4.00-5.40); RDW 13.5 % (11.5-14.5); WBC 5.5 10x3/uL (4.8-10.8)
[2017-03-19 04:07] LABS: ALBUMIN 2.8 g/dL (3.4-5.0); ANION GAP 6.2 mmol/L (8-16); BILIRUBIN - TOTAL 0.5 mg/dL (0.2-1.3); CALCIUM 9.8 mg/dL (8.5-10.1); CARBON DIOXIDE 31.3 mmol/L (21.0-32.0); CREATININE - SERUM 1.3 mg/dL (0.6-1.3); POTASSIUM - SERUM 4.5 mmol/L (3.5-5.1); PROTEIN - SERUM 6.6 g/dL (6.4-8.2)
[2017-03-19 05:41] LABS: LYMPHOCYTES 32 % (15-50); MONOCYTES 17 % (2-11); NEUTROPHILS 51 % (40-80); PLATELET ESTIMATE NORMAL
[2017-03-19 22:34] VITALS: BP 102/69; BMI 21.9
[2017-03-19 22:49] VITALS: BP 102/69
[2017-03-20 01:27] VITALS: BP 119/34
[2017-03-20 06:28] VITALS: BP 137/98
[2017-03-20 07:41] VITALS: BP 108/62
[2017-03-20 11:37] VITALS: BP 112/66
[2017-03-20 16:09] VITALS: BP 105/66
[2017-03-20 20:00] VITALS: BP 105/53
[2017-03-21] VITALS: BP 100/60
[2017-03-21 04:00] VITALS: BP 111/63
[2017-03-21 10:26] VITALS: BP 148/48
[2017-03-21 13:06] VITALS: BP 112/57
[2017-03-21 21:38] VITALS: BP 118/49
[2017-03-22 01:44] VITALS: BP 132/33
[2017-03-22 05:40] VITALS: BP 122/34
[2017-03-22 12:02] VITALS: BP 109/44
[2017-03-22 14:11] VITALS: Ht 170.2 cm; Wt 63.5 kg
[2017-03-22 15:37] VITALS: BP 141/75
[2017-03-22] MEDS ORDERED: FLORAJEN3 CAPS460 MG PO (16:22)
[2017-03-22] MEDS ORDERED: LEVAQUIN250 MG PO (16:23)
[2017-03-22] MEDS ORDERED: LOVENOX30 MG/0.3 SC (16:24)
[2017-03-22] MEDS ORDERED: PAXIL10 MG PO (16:24)
[2017-03-22] MEDS ORDERED: HYDROCODON-ACE1 EAC7 PO (16:30)
== END 2017-03-22 17:04 | DRG 690 ==
LOC: D.ER 17:31 → D.M2 23:59 → D.SDCHOLD 23:59 → D.M2 03-19 18:31
PROVIDERS: Family Medicine
DX: N39.0 Urinary tract infection, site not specified (principal); M48.54XD Collapsed vertebra, not elsewhere classified, thoracic region, subsequent encounter for fracture with routine healing; E86.0 Dehydration; F03.90 Unspecified dementia, unspecified severity, without behavioral disturbance, psychotic disturbance, mood disturbance, and anxiety; I10 Essential (primary) hypertension; E78.5 Hyperlipidemia, unspecified; M19.90 Unspecified osteoarthritis, unspecified site; B96.20 Unspecified Escherichia coli [E. coli] as the cause of diseases classified elsewhere; M54.5 Low back pain; G31.9 Degenerative disease of nervous system, unspecified

== ENCOUNTER 2017-03-22 15:59 | Inpatient (IN) | payer MEDICARE, BC ==
[~2017-03-22] VITALS: Ht 170.2 cm; Wt 54.4 kg
--- NOTE | ~2017-03-22 | RHP ---
PATIENT: NETTA BRITT MEDICAL RECORD: [id number] ACCOUNT: [id number] LOCATION:[facility] [id number] : [birth year] ADMISSION DATE: 03/22/17 REHABILITATION HISTORY AND PHYSICAL EXAMINATION POST ADMISSION PHYSICIAN EXAMINATION DATE OF ADMISSION: 03/22/2017. ADMITTING DIAGNOSES: Back pain secondary to thoracic compression fracture. HISTORY OF PRESENT ILLNESS: The patient is an 86-year-old female patient admitted to rehab for pain secondary to thoracic compression fracture. She is admitted 3 weeks ago secondary to hypotension, dehydration, found to have a UTI. She was treated appropriately and then discharged from upstairs to inpatient rehab. She did well on rehab advancing from mod assist to supervision with ADLs and from total assist to supervision with locomotion. She was discharged on 03/13 to [facility]. Over a couple of days she has had increased weakness. She does not want to get out of bed. She required assistance getting up from her chair and walking. She also complained of low back pain, which was a new finding. She never had any pain before, she was brought to the Emergency Room. Urinalysis did show UTI. She had a CT scan of her brain showing atrophy and CT of her thoracic and lumbar spine showing what looked like old appearing compression fractures at T1 and also T10. BUN was a little bit elevated, creatinine remained the same. She was admitted back to the acute hospital for weakness, UTI, and back pain, currently mod to max assist for ADLs and total assist with ambulation. She is ambulating 5 feet with PT. She and her family would like her to return back to her prior level of function and return back to [facility] when possible. COMORBIDITIES: In this patient include sick sinus syndrome, UTI, dehydration, dementia, and fall and also hypertension. PAST MEDICAL HISTORY: Significant for senile dementia, hypertension, hyperlipidemia, and osteoarthritis. PAST SURGICAL HISTORY: Includes a total knee. She has also had an infection of this total knee. She has had a hysterectomy and bladder suspension. ALLERGIES: SULFA AND MORPHINE. CURRENT MEDICATIONS: Include Ativan 0.25 mg q.8 hours as needed for anxiety, Paxil 10 mg daily, multivitamin daily, Christiana 60 mg daily, lisinopril 10 mg daily, Levaquin 250 mg daily, daily, hydrocodone 5/325 one tab t.i.d. p.r.n., ferrous sulfate 325 mg daily, Caltrate 500 mg daily, Zocor 10 mg at bedtime, and Lovenox 30 mg subcutaneous q.24 hours. HABITS: No alcohol or tobacco use. FAMILY HISTORY: Noncontributory. SOCIAL HISTORY: The patient hopes to return back to [place] and get back to her prior level of function. REVIEW OF SYSTEMS: GENERAL: Does complain of some weakness. HISTORY AND PHYSICAL [id number] NETTA BRITT HEENT: She denies cold, cough, or congestion. CARDIOVASCULAR: She denied chest pain. PHYSICAL EXAMINATION: VITAL SIGNS: Stable, afebrile. GENERAL: A well-developed female who is somewhat confused. HEENT: Normocephalic and atraumatic. Mucosa moist. NECK: Supple. No lymphadenopathy. LUNGS: Clear. HEART: Regular rate and rhythm. ABDOMEN: Benign. EXTREMITIES: No clubbing, cyanosis, or edema. NEUROLOGIC: Slow to mentate. She has some mild confusion, but she is very appropriate and friendly upon exam. LABORATORY DATA: White count 5.8, H&H of 11 and 35, and platelet count 370. Her sodium is 138, potassium 4.5, BUN and creatinine of 31.4, and blood sugar is noted to be 116. ASSESSMENT: This is an 86-year-old female patient admitted to rehab with a working diagnosis of back pain secondary to compression fracture. The patient has potential to make improvement. We instituted the following multidisciplinary therapies including to, but not limited to physical, occupational, respiratory, speech, nutritional services, prosthetics, and orthotics. Given her complex condition and risk for more complications, rehabilitation service cannot provided at a low level of care such as assisted facility. PLAN: 1. Admit to [facility] rehab for intensive inpatient therapy to include the following disciplines: A. Physical therapy to improve gait, all transfer skills, and bed mobility to a modified independent level. B. Occupational therapy to improve activities of daily living to a modified independent level. C. Case management to assist with discharge planning and placement options. D. Nutrition to assist with nutritional needs. E. Rehabilitation nursing to assist in monitoring the patient's underlying medical conditions and to assist with any type of bowel or bladder management. 2. The patient's current medication and medical care will be continued. 3. The patient will be placed on standard fall precautions. 4. The patient's estimated length of stay is approximately 7-10 days. 5. Discuss this patient during care team staff meeting this week to follow up on Saturday morning or earlier if necessary. TRANSINT:[id number] Voice Confirmation ID: [id number] DOCUMENT ID: [id number] SILVIO notes whether there has been none or any medical/functional change since admission: - No change since preadmisison screen. SILVIO attests patient continues to be appropriate for IRF: - Continues to be appropriate. HISTORY AND PHYSICAL [id number] NETTA BRITT SCOTT MD at 0822 CC: [id number] DICTATION DATE: 03/23/17 1150 FRAME OPERATOR: 03/23/17 1247 [id number] [place] [address]
[2017-03-22] MEDS ORDERED: FLORAJEN3 CAPS460 MG PO (16:22)
[2017-03-22] MEDS ORDERED: LEVAQUIN250 MG PO (16:23)
[2017-03-22] MEDS ORDERED: LOVENOX30 MG/0.3 SC (16:24)
[2017-03-22] MEDS ORDERED: PAXIL10 MG PO (16:24)
[2017-03-22] MEDS ORDERED: HYDROCODON-ACE1 EAC7 PO (16:30)
[2017-03-22 19:00] VITALS: BP 127/68
[2017-03-22 22:21] VITALS: BP 127/68; BMI 18.8
[2017-03-23 05:30] LABS: BASOPHILS 0.3 % (0-2); EOSINOPHILS 1.7 % (0-7); HEMATOCRIT 34.9 % (36.0-48.0); HEMOGLOBIN 11.3 g/dL (12-16); IMMATURE GRANULOCYTES 0.3 % (0-5); LYMPHOCYTES 18.5 % (15-50); MCH 29.7 pg (26.0-34.0); MCHC 32.4 g/dL (31.0-37.0); MCV 91.8 fL (80.0-100.0); MEAN PLATELET VOLUME 9.6 fL (7.4-10.4); MONOCYTES 18.5 % (2-11); NEUTROPHILS 60.7 % (40-80); PLATELET COUNT 370 10x3/uL (130-400); RDW 13.1 % (11.5-14.5); WBC 5.8 10x3/uL (4.8-10.8)
[2017-03-23 05:42] LABS: ANION GAP 11.6 mmol/L (8-16); CALCIUM 10.4 mg/dL (8.5-10.1); CARBON DIOXIDE 28.9 mmol/L (21.0-32.0); CREATININE - SERUM 1.4 mg/dL (0.6-1.3); POTASSIUM - SERUM 4.5 mmol/L (3.5-5.1)
[2017-03-23 08:00] VITALS: BP 117/068
[2017-03-23 19:35] VITALS: BP 130/46
[2017-03-24 08:53] VITALS: BP 123/45
[2017-03-24 19:48] VITALS: BP 113/33
[2017-03-25 06:16] LABS: BASOPHILS 0.2 % (0-2); HEMATOCRIT 31.1 % (36.0-48.0); HEMOGLOBIN 9.9 g/dL (12-16); IMMATURE GRANULOCYTES 0.3 % (0-5); MCH 29.4 pg (26.0-34.0); MCHC 31.8 g/dL (31.0-37.0); MCV 92.3 fL (80.0-100.0); MEAN PLATELET VOLUME 9.5 fL (7.4-10.4); MONOCYTES 18.9 % (2-11); NEUTROPHILS 51.6 % (40-80); PLATELET COUNT 330 10x3/uL (130-400); RBC 3.37 10x6/uL (4.00-5.40); RDW 13.4 % (11.5-14.5); WBC 5.9 10x3/uL (4.8-10.8)
[2017-03-25 06:31] LABS: ANION GAP 11.7 mmol/L (8-16); CALCIUM 9.6 mg/dL (8.5-10.1); CARBON DIOXIDE 28.5 mmol/L (21.0-32.0); CREATININE - SERUM 1.4 mg/dL (0.6-1.3); POTASSIUM - SERUM 4.2 mmol/L (3.5-5.1)
[2017-03-25 08:00] VITALS: BP 121/41
[2017-03-25 20:00] VITALS: BP 105/58
[2017-03-26 08:00] VITALS: BP 142/54
[2017-03-26 09:48] VITALS: BMI 18.8
[2017-03-26 22:15] VITALS: BP 150/38
[2017-03-27 06:16] LABS: ANION GAP 9.2 mmol/L (8-16); CALCIUM 10.2 mg/dL (8.5-10.1); CARBON DIOXIDE 30.1 mmol/L (21.0-32.0); CREATININE - SERUM 1.2 mg/dL (0.6-1.3); POTASSIUM - SERUM 4.3 mmol/L (3.5-5.1)
[2017-03-27 06:17] LABS: BASOPHILS 0.2 % (0-2); EOSINOPHILS 3.1 % (0-7); HEMATOCRIT 31.1 % (36.0-48.0); HEMOGLOBIN 9.8 g/dL (12-16); IMMATURE GRANULOCYTES 0.5 % (0-5); MCH 29.4 pg (26.0-34.0); MCHC 31.5 g/dL (31.0-37.0); MCV 93.4 fL (80.0-100.0); MEAN PLATELET VOLUME 9.9 fL (7.4-10.4); MONOCYTES 18.5 % (2-11); NEUTROPHILS 34.7 % (40-80); PLATELET COUNT 339 10x3/uL (130-400); RBC 3.33 10x6/uL (4.00-5.40); RDW 13.5 % (11.5-14.5)
[2017-03-27 06:20] LABS: WBC 4.2 10x3/uL (4.8-10.8)
[2017-03-27 08:32] VITALS: BP 140/46
[2017-03-27 17:18] VITALS: Ht 170.2 cm; Wt 54.4 kg
[2017-03-27 20:30] VITALS: BP 144/57
[2017-03-28 08:00] VITALS: BP 144/56
[2017-03-28 21:16] VITALS: BP 119/51
[2017-03-29 06:46] LABS: BASOPHILS 0.3 % (0-2); EOSINOPHILS 0.7 % (0-7); HEMATOCRIT 33.9 % (36.0-48.0); HEMOGLOBIN 10.8 g/dL (12-16); IMMATURE GRANULOCYTES 0.3 % (0-5); LYMPHOCYTES 29.5 % (15-50); MCH 29.2 pg (26.0-34.0); MCHC 31.9 g/dL (31.0-37.0); MCV 91.6 fL (80.0-100.0); MEAN PLATELET VOLUME 10.1 fL (7.4-10.4); MONOCYTES 12.5 % (2-11); NEUTROPHILS 56.7 % (40-80); PLATELET COUNT 373 10x3/uL (130-400); RDW 13.4 % (11.5-14.5)
[2017-03-29 06:53] LABS: WBC 6.7 10x3/uL (4.8-10.8)
[2017-03-29 06:54] LABS: ANION GAP 6.7 mmol/L (8-16); CALCIUM 9.9 mg/dL (8.5-10.1); CARBON DIOXIDE 30.8 mmol/L (21.0-32.0); CREATININE - SERUM 1.3 mg/dL (0.6-1.3); POTASSIUM - SERUM 4.5 mmol/L (3.5-5.1)
[2017-03-29 08:32] VITALS: BP 113/41
[2017-03-29 20:04] VITALS: BP 108/46
[2017-03-30 14:23] VITALS: BP 112/40
[2017-03-30 21:10] VITALS: BP 141/70
[2017-03-31 08:34] VITALS: BP 113/34
[2017-03-31 20:30] VITALS: BP 117/42
[2017-04-01 05:51] LABS: BASOPHILS 0.2 % (0-2); EOSINOPHILS 0.5 % (0-7); HEMATOCRIT 31.1 % (36.0-48.0); IMMATURE GRANULOCYTES 0.4 % (0-5); LYMPHOCYTES 29.5 % (15-50); MCH 29.3 pg (26.0-34.0); MCHC 32.2 g/dL (31.0-37.0); MCV 91.2 fL (80.0-100.0); MEAN PLATELET VOLUME 10.2 fL (7.4-10.4); MONOCYTES 14.6 % (2-11); NEUTROPHILS 54.8 % (40-80); PLATELET COUNT 352 10x3/uL (130-400); RBC 3.41 10x6/uL (4.00-5.40); WBC 5.6 10x3/uL (4.8-10.8)
[2017-04-01 06:11] LABS: ANION GAP 10.6 mmol/L (8-16); CALCIUM 9.8 mg/dL (8.5-10.1); CARBON DIOXIDE 27.4 mmol/L (21.0-32.0); CREATININE - SERUM 1.5 mg/dL (0.6-1.3)
[2017-04-01 08:00] VITALS: BP 151/55
[2017-04-01 21:40] VITALS: BP 126/47
[2017-04-02 08:16] VITALS: BP 105/51
[2017-04-02 20:30] VITALS: BP 112/48
[2017-04-03 07:01] LABS: BASOPHILS 0.4 % (0-2); EOSINOPHILS 0.4 % (0-7); HEMATOCRIT 31.1 % (36.0-48.0); HEMOGLOBIN 10.1 g/dL (12-16); IMMATURE GRANULOCYTES 0.4 % (0-5); LYMPHOCYTES 33.6 % (15-50); MCH 29.7 pg (26.0-34.0); MCHC 32.5 g/dL (31.0-37.0); MCV 91.5 fL (80.0-100.0); MEAN PLATELET VOLUME 10.1 fL (7.4-10.4); MONOCYTES 16.4 % (2-11); NEUTROPHILS 48.8 % (40-80); PLATELET COUNT 352 10x3/uL (130-400); RDW 14.3 % (11.5-14.5); WBC 4.6 10x3/uL (4.8-10.8)
[2017-04-03 07:19] LABS: ANION GAP 12.8 mmol/L (8-16); CALCIUM 9.4 mg/dL (8.5-10.1); CREATININE - SERUM 1.2 mg/dL (0.6-1.3); POTASSIUM - SERUM 4.8 mmol/L (3.5-5.1)
[2017-04-03 08:07] VITALS: BP 143/48
[2017-04-03 20:55] VITALS: BP 121/43
[2017-04-04 08:00] VITALS: BP 115/51
[2017-04-04] MEDS ORDERED: REQUIP0.25 MG PO (08:21)
[2017-04-04] MEDS ORDERED: MEGACE400 MG/10 PO (08:21)
[2017-04-04] MEDS ORDERED: MACROBID100 MG PO (08:21)
== END 2017-04-04 14:28 | disposition home health service (06) | DRG 543 ==
LOC: D.REHAB 15:59
PROVIDERS: Emergency Medicine
DX: M48.54XA Collapsed vertebra, not elsewhere classified, thoracic region, initial encounter for fracture (principal); N39.0 Urinary tract infection, site not specified; I49.5 Sick sinus syndrome; E86.0 Dehydration; F03.90 Unspecified dementia, unspecified severity, without behavioral disturbance, psychotic disturbance, mood disturbance, and anxiety; I10 Essential (primary) hypertension; Z66 Do not resuscitate

== ENCOUNTER 2017-08-13 22:06 | Inpatient (IN) | payer MEDICARE, BC ==
[~2017-08-13] VITALS: Ht 170.2 cm; Wt 56.4 kg
[~2017-08-13 22:06] MED LIST changes: +FLORAJEN3 CAPS460 MG PO; +LEVAQUIN250 MG PO; +LOVENOX30 MG/0.3 SC; +MACROBID100 MG PO; +MEGACE400 MG/10 PO; +PAXIL10 MG PO; +REQUIP0.25 MG PO
[2017-08-13 23:23] LABS: HEMATOCRIT 32.9 % (36.0-48.0); LYMPHOCYTES 38.3 % (15-50); MCH 30.8 pg (26.0-34.0); MCHC 33.4 g/dL (31.0-37.0); MCV 92.2 fL (80.0-100.0); MEAN PLATELET VOLUME 9.7 fL (7.4-10.4); NEUTROPHILS 38.8 % (40-80); RBC 3.57 10x6/uL (4.00-5.40); RDW 13.2 % (11.5-14.5); WBC 3.6 10x3/uL (4.8-10.8)
[2017-08-13 23:27] LABS: PLATELET COUNT 262 10x3/uL (130-400)
[2017-08-13 23:37] LABS: APTT 28.6 SECONDS (22.8-39.4); INR 1.08 (0.85-1.17); PROTIME 13.6 SECONDS (11.6-15.0)
[2017-08-13 23:38] LABS: D-DIMER-QUANTITATIVE 2.23 ug/mLFEU (0.20-0.54)
[2017-08-13 23:53] LABS: ALBUMIN 3.1 g/dL (3.4-5.0); ALKALINE PHOSPHATASE 74 U/L (46-116); ALT (SGPT) 18 U/L (10-68); BILIRUBIN - TOTAL 0.29 mg/dL (0.2-1.3); CALC OSMOLALITY 287 mosm/kg (275-300); CALCIUM 9.8 mg/dL (8.5-10.1); CARBON DIOXIDE 30.6 mmol/L (21.0-32.0); CHLORIDE - SERUM 105 mmol/L (98-107); CREATININE - SERUM 1.5 mg/dL (0.6-1.3); GLUCOSE 83 mg/dL (74-106); POTASSIUM - SERUM 4.4 mmol/L (3.5-5.1); PROTEIN - SERUM 6.8 g/dL (6.4-8.2); SODIUM 142 mmol/L (136-145); UREA NITROGEN 30 mg/dL (7-18); eGFR NON AFRICAN AMERICAN 35 mL/min (90-120)
[2017-08-13 23:55] LABS: CKMB 2.1 U/L (0.0-3.6); CREATINE KINASE 120 UL (21-215)
[2017-08-13 23:56] LABS: TROPONIN-I < 0.017 ng/mL (0.000-0.060)
[2017-08-14 01:11] LABS: APPEARANCE CLOUDY (CLEAR); BILIRUBIN NEGATIVE (NEGATIVE); COLOR YELLOW (YELLOW); GLUCOSE NEGATIVE (NEGATIVE); KETONE NEGATIVE (NEGATIVE); NITRITE NEGATIVE (NEGATIVE); PROTEIN NEGATIVE (NEGATIVE); SPECIFIC GRAVITY 1.015 (1.005-1.020); UROBILINOGEN NORMAL (NORMAL)
[2017-08-14 01:12] LABS: BACTERIA MANY /hpf (NONE SEEN); EPITHELIAL CELLS 0-5 /hpf (0-5); RED CELLS - URINE NONE SEEN /hpf (0-5); WHITE CELLS - URINE 0-5 /hpf (0-5)
[2017-08-14 05:29] VITALS: BP 148/42
[2017-08-14 07:44] LABS: BASOPHILS 0.3 % (0-2); EOSINOPHILS 3.7 % (0-7); HEMATOCRIT 33.4 % (36.0-48.0); HEMOGLOBIN 10.7 g/dL (12-16); LYMPHOCYTES 40.7 % (15-50); MCV 93.6 fL (80.0-100.0); MEAN PLATELET VOLUME 9.8 fL (7.4-10.4); MONOCYTES 19.6 % (2-11); NEUTROPHILS 35.7 % (40-80); PLATELET COUNT 255 10x3/uL (130-400); RBC 3.57 10x6/uL (4.00-5.40); RDW 13.6 % (11.5-14.5); WBC 3.2 10x3/uL (4.8-10.8)
[2017-08-14 08:05] LABS: ANION GAP 6.6 mmol/L (8-16); BILIRUBIN - TOTAL 0.28 mg/dL (0.2-1.3); CALCIUM 9.4 mg/dL (8.5-10.1); CARBON DIOXIDE 31.4 mmol/L (21.0-32.0); CREATININE - SERUM 1.3 mg/dL (0.6-1.3); PROTEIN - SERUM 6.2 g/dL (6.4-8.2)
[2017-08-14 08:46] VITALS: BP 144/51
[2017-08-14 12:17] VITALS: BP 146/55
[2017-08-14 14:05] VITALS: BP 144/51; BMI 19.0
[2017-08-14 16:25] VITALS: BP 129/40
[2017-08-14 21:01] VITALS: BP 152/45
[2017-08-15 01:29] VITALS: BP 131/51
[2017-08-15 04:51] LABS: BASOPHILS 0.5 % (0-2); EOSINOPHILS 3.1 % (0-7); HEMATOCRIT 34.8 % (36.0-48.0); HEMOGLOBIN 11.1 g/dL (12-16); IMMATURE GRANULOCYTES 0.3 % (0-5); LYMPHOCYTES 31.9 % (15-50); MCH 29.8 pg (26.0-34.0); MCHC 31.9 g/dL (31.0-37.0); MCV 93.5 fL (80.0-100.0); NEUTROPHILS 43.2 % (40-80); PLATELET COUNT 257 10x3/uL (130-400); RBC 3.72 10x6/uL (4.00-5.40); RDW 13.5 % (11.5-14.5); WBC 3.9 10x3/uL (4.8-10.8)
[2017-08-15 05:09] VITALS: BP 143/53
[2017-08-15 05:38] LABS: ANION GAP 12.7 mmol/L (8-16); CALCIUM 9.6 mg/dL (8.5-10.1); CARBON DIOXIDE 26.7 mmol/L (21.0-32.0); CREATININE - SERUM 1.3 mg/dL (0.6-1.3); POTASSIUM - SERUM 4.4 mmol/L (3.5-5.1)
[2017-08-15 08:48] VITALS: BP 132/74
[2017-08-15 10:48] VITALS: BP 138/78
[2017-08-15 15:41] VITALS: BP 130/68
[2017-08-15 22:34] VITALS: BP 175/69
[2017-08-16 01:00] VITALS: BP 153/49
[2017-08-16 05:41] LABS: BASOPHILS 0.3 % (0-2); EOSINOPHILS 3.9 % (0-7); HEMATOCRIT 35.8 % (36.0-48.0); HEMOGLOBIN 11.6 g/dL (12-16); IMMATURE GRANULOCYTES 0.6 % (0-5); LYMPHOCYTES 30.9 % (15-50); MCH 30.1 pg (26.0-34.0); MCHC 32.4 g/dL (31.0-37.0); MEAN PLATELET VOLUME 10.1 fL (7.4-10.4); MONOCYTES 22.7 % (2-11); NEUTROPHILS 41.6 % (40-80); PLATELET COUNT 272 10x3/uL (130-400); RBC 3.85 10x6/uL (4.00-5.40); RDW 13.5 % (11.5-14.5); WBC 3.6 10x3/uL (4.8-10.8)
[2017-08-16 05:56] LABS: ANION GAP 11.7 mmol/L (8-16); CALCIUM 9.6 mg/dL (8.5-10.1); CARBON DIOXIDE 27.5 mmol/L (21.0-32.0); CREATININE - SERUM 1.2 mg/dL (0.6-1.3); POTASSIUM - SERUM 4.2 mmol/L (3.5-5.1)
[2017-08-16 05:59] VITALS: BP 113/50
[2017-08-16 07:12] LABS: APPEARANCE CLEAR (CLEAR); BILIRUBIN NEGATIVE (NEGATIVE); COLOR YELLOW (YELLOW); GLUCOSE NEGATIVE (NEGATIVE); KETONE NEGATIVE (NEGATIVE); NITRITE NEGATIVE (NEGATIVE); PROTEIN NEGATIVE (NEGATIVE); SPECIFIC GRAVITY 1.005 (1.005-1.020); UROBILINOGEN NORMAL (NORMAL)
[2017-08-16 07:52] VITALS: BP 174/59
[2017-08-16 12:02] VITALS: BP 144/54
[2017-08-16 12:08] VITALS: Ht 170.2 cm; Wt 56.4 kg
[2017-08-16 16:27] VITALS: BP 186/65
[2017-08-16 20:00] VITALS: BP 146/43
[2017-08-17] VITALS: BP 155/68
[2017-08-17 04:00] VITALS: BP 165/54
[2017-08-17 05:34] LABS: BASOPHILS 0.5 % (0-2); EOSINOPHILS 2.9 % (0-7); HEMATOCRIT 36.3 % (36.0-48.0); HEMOGLOBIN 11.8 g/dL (12-16); LYMPHOCYTES 39.3 % (15-50); MCH 30.2 pg (26.0-34.0); MCHC 32.5 g/dL (31.0-37.0); MCV 92.8 fL (80.0-100.0); MONOCYTES 20.1 % (2-11); NEUTROPHILS 37.2 % (40-80); PLATELET COUNT 275 10x3/uL (130-400); RBC 3.91 10x6/uL (4.00-5.40); RDW 13.4 % (11.5-14.5); WBC 4.1 10x3/uL (4.8-10.8)
[2017-08-17 05:46] LABS: ANION GAP 10.6 mmol/L (8-16); CALCIUM 10.1 mg/dL (8.5-10.1); CARBON DIOXIDE 29.7 mmol/L (21.0-32.0); CREATININE - SERUM 1.2 mg/dL (0.6-1.3); POTASSIUM - SERUM 4.3 mmol/L (3.5-5.1)
[2017-08-17 08:52] VITALS: BP 140/50
[2017-08-17 16:33] VITALS: BP 135/54
[2017-08-17 21:43] VITALS: BP 151/54
[2017-08-18 03:03] VITALS: BP 143/46
[2017-08-18 05:38] LABS: HEMATOCRIT 35.9 % (36.0-48.0); HEMOGLOBIN 11.5 g/dL (12-16); MCV 93.7 fL (80.0-100.0); MEAN PLATELET VOLUME 9.7 fL (7.4-10.4); PLATELET COUNT 254 10x3/uL (130-400); RBC 3.83 10x6/uL (4.00-5.40); RDW 13.7 % (11.5-14.5); WBC 3.6 10x3/uL (4.8-10.8)
[2017-08-18 05:47] LABS: ANION GAP 7.9 mmol/L (8-16); CALCIUM 10.2 mg/dL (8.5-10.1); CARBON DIOXIDE 30.4 mmol/L (21.0-32.0); CREATININE - SERUM 1.5 mg/dL (0.6-1.3); POTASSIUM - SERUM 4.3 mmol/L (3.5-5.1)
[2017-08-18 06:01] VITALS: BP 142/41
[2017-08-18 06:10] LABS: BASOPHILS 1 % (0-2); EOSINOPHILS 1 % (0-7); LYMPHOCYTES 37 % (15-50); MONOCYTES 11 % (2-11); NEUTROPHILS 49 % (40-80); PLATELET ESTIMATE NORMAL
[2017-08-18 08:21] VITALS: BP 151/46
[2017-08-18 11:36] VITALS: BP 143/54
[2017-08-18 15:59] LABS: ANION GAP 9.9 mmol/L (8-16); CALCIUM 9.9 mg/dL (8.5-10.1); CARBON DIOXIDE 30.7 mmol/L (21.0-32.0); CREATININE - SERUM 1.5 mg/dL (0.6-1.3); POTASSIUM - SERUM 4.6 mmol/L (3.5-5.1)
[2017-08-18 16:14] VITALS: BP 137/65
[2017-08-18 20:00] VITALS: BP 145/68
[2017-08-19] VITALS: BP 131/58
[2017-08-19 04:00] VITALS: BP 142/60
[2017-08-19 04:56] LABS: BASOPHILS 0.2 % (0-2); EOSINOPHILS 2.4 % (0-7); HEMATOCRIT 36.2 % (36.0-48.0); HEMOGLOBIN 11.9 g/dL (12-16); IMMATURE GRANULOCYTES 0.2 % (0-5); MCH 30.4 pg (26.0-34.0); MCHC 32.9 g/dL (31.0-37.0); MCV 92.6 fL (80.0-100.0); MEAN PLATELET VOLUME 10.2 fL (7.4-10.4); MONOCYTES 24.7 % (2-11); NEUTROPHILS 41.5 % (40-80); PLATELET COUNT 291 10x3/uL (130-400); RBC 3.91 10x6/uL (4.00-5.40); RDW 13.5 % (11.5-14.5); WBC 4.6 10x3/uL (4.8-10.8)
[2017-08-19 05:10] LABS: ANION GAP 11.9 mmol/L (8-16); CALCIUM 9.7 mg/dL (8.5-10.1); CARBON DIOXIDE 30.1 mmol/L (21.0-32.0); CREATININE - SERUM 1.4 mg/dL (0.6-1.3)
[2017-08-19 08:00] VITALS: BP 148/47
[2017-08-19 08:44] VITALS: BP 169/50
[2017-08-19 12:36] VITALS: BP 123/42
[2017-08-19 17:45] VITALS: BP 153/60
[2017-08-20 07:00] VITALS: BP 134/55
[2017-08-20 11:00] VITALS: BP 125/87
[2017-08-20] MEDS ORDERED: AMPICILLIN TRI500 MG PO (13:13)
== END 2017-08-20 19:32 | DRG 690 ==
LOC: D.ER 22:06 → OBSVTIME 08-14 02:06 → D.EDHOLD 08-14 02:06 → D.M2 08-14 03:40
PROVIDERS: Family Medicine
DX: N39.0 Urinary tract infection, site not specified (principal); R41.82 Altered mental status, unspecified; F03.90 Unspecified dementia, unspecified severity, without behavioral disturbance, psychotic disturbance, mood disturbance, and anxiety; I10 Essential (primary) hypertension; Z95.0 Presence of cardiac pacemaker; D63.8 Anemia in other chronic diseases classified elsewhere; M19.90 Unspecified osteoarthritis, unspecified site; E86.0 Dehydration

== ENCOUNTER 2017-08-20 20:30 | Inpatient (IN) | payer MEDICARE, BC ==
[~2017-08-20] VITALS: Ht 170.2 cm; Wt 54.4 kg
--- NOTE | ~2017-08-20 | RHP ---
PATIENT: NETTA BRITT MEDICAL RECORD: [id number] ACCOUNT: [id number] [id number] [birth year] ADMISSION DATE: 08/20/17 REHABILITATION HISTORY AND PHYSICAL EXAMINATION POST ADMISSION PHYSICIAN EXAMINATION ADMITTING DIAGNOSES: Disuse myopathy. HISTORY OF PRESENT ILLNESS: The patient admitted to inpatient rehab with disuse myopathy. She is an 87-year-old female patient of Dr. Cross who resides at [facility] for dementia. She presented to ED on 08/15/2017 with increasing weakness and confusion, was found to have [id number] UTI. She will continue to be on nitrofurantoin and treated with Rocephin during her rehab stay. She had a history of chronic anemia, hypertension, pacemaker placement, stents and angioplasty. She was in a rehab in March secondary debilitating pain from a thoracic compression fracture. She has been living in assisted living at this time and did well in the rehabilitation, discharged back to home. This admission, she is having extreme proximal muscle weakness and max assist from supine to sit and sit to stand, only ambulating 6 feet. She is requiring minimum to max assist with ADLs and required intensive therapy to get her back to [facility]. COMORBIDITIES: In this patient include UTI, sick sinus syndrome, altered mental status, anemia, osteoarthritis, hypotension, pacemaker placement, dementia, arthritis, weakness and history of stents and angioplasty. PAST MEDICAL HISTORY: Significant for dementia, cataracts, hypertension, pacemaker, stents and angioplasty, skin cancer and dementia. PAST SURGICAL HISTORY: Includes appendectomy, right wrist surgery, knee surgery, colon resection, hysterectomy. ALLERGIES: SULFA AND MORPHINE. CURRENT MEDICATIONS: Include Myrbetriq daily. She is on multivitamin daily, on Christiana 60 mg daily, Zestril 10 mg daily, calcium carbonate 500 mg daily, ampicillin 500 mg b.i.d. She is on polyethylene glycol or MiraLax 17 grams in 8 ounces of water daily and Requip 0.5 mg at bedtime. HABITS: No alcohol or tobacco use. FAMILY HISTORY: Noncontributory. SOCIAL HISTORY: The patient hopes to return back to [place] and get back to her prior level of care. REVIEW OF SYSTEMS: GENERAL: Does complain of weakness and fatigue. HEENT: Denies cold, cough, or congestion. CARDIOVASCULAR: Denies chest pain. PHYSICAL EXAMINATION: VITAL SIGNS: Stable, afebrile. GENERAL: An elderly female, in no acute distress upon exam. HEENT: Normocephalic and atraumatic. Mucosa moist. HISTORY AND PHYSICAL [id number] NETTA BRITT NECK: Supple, with no lymphadenopathy. LUNGS: Clear at this time. No wheeze, rhonchi or rales. HEART: Regular rate and rhythm. No murmurs, rubs or gallops. ABDOMEN: Benign. EXTREMITIES: No clubbing, cyanosis or edema. NEUROLOGIC: She does have noted proximal muscle weakness. LABORATORY DATA: Her white count is 4.8, H&H of 12 and 36, and platelet count is noted to be 280. Sodium 136, potassium 4.3, BUN and creatinine of 28 and 1.2, and blood sugar is noted to be 101. ASSESSMENT: This is an 87-year-old female patient admitted to rehab with a working diagnosis of disuse myopathy secondary to hospitalization secondary to urinary tract infection. The patient has potential to make improvement. We instituted the following multidisciplinary therapies including, but not limited physical, occupational, respiratory, speech, nutritional services, prosthetics and orthotics. Given her complex medical condition and risks for more complications, rehabilitation services cannot be provided at a low level of care such as skilled nurse facility. PLAN: 1. Admit to [facility] for intensive inpatient therapy to include the following disciplines: A. Physical therapy to improve gait, all transfer skills and bed mobility to a modified independent level. B. Occupational therapy to improve activities of daily living to a modified independent level. C. Case management to assist with discharge planning and placement options. D. Nutrition to assist with nutritional needs. E. Rehabilitation nursing to assist in monitoring the patient's underlying medical conditions and to assist with any type of bowel or bladder management. 2. The patient's current medications and medical care will be continued. 3. Placed on standard fall precautions. 4. The patient's stay is approximately 7 to 10 days. 5. We will discuss this patient during care team staff meeting this week. Her family is well involved in her care and hopefully get her back out to [facility] in a timely fashion. TRANSINT:[id number] Voice Confirmation ID: [id number] DOCUMENT ID: [id number] SILVIO notes whether there has been none or any medical/functional change since admission: - No change since preadmission screen. SILVIO attests patient continues to be appropriate for IRF: - Continues to be appropriate. HISTORY AND PHYSICAL [id number] NETTA BRITT SCOTT MD at 2041 CC: [id number] DICTATION DATE: 08/21/17823 FUMIGATOR AND STERILIZER: 08/21/17 0903 ADM [id number] [place] [address]
[~2017-08-20 20:30] MED LIST changes: +AMPICILLIN TRI500 MG PO
[2017-08-20 22:11] VITALS: BP 151/46; BMI 18.8
[2017-08-21 06:52] LABS: BASOPHILS 0.4 % (0-2); EOSINOPHILS 0.8 % (0-7); HEMATOCRIT 36.1 % (36.0-48.0); HEMOGLOBIN 12.1 g/dL (12-16); LYMPHOCYTES 32.7 % (15-50); MCH 30.6 pg (26.0-34.0); MCHC 33.5 g/dL (31.0-37.0); MCV 91.4 fL (80.0-100.0); MEAN PLATELET VOLUME 9.6 fL (7.4-10.4); MONOCYTES 24.5 % (2-11); NEUTROPHILS 41.6 % (40-80); PLATELET COUNT 280 10x3/uL (130-400); RBC 3.95 10x6/uL (4.00-5.40); RDW 13.4 % (11.5-14.5); WBC 4.8 10x3/uL (4.8-10.8)
[2017-08-21 06:58] LABS: ANION GAP 12.1 mmol/L (8-16); CALCIUM 9.6 mg/dL (8.5-10.1); CARBON DIOXIDE 28.2 mmol/L (21.0-32.0); CREATININE - SERUM 1.2 mg/dL (0.6-1.3); POTASSIUM - SERUM 4.3 mmol/L (3.5-5.1)
[2017-08-21 08:00] VITALS: BP 126/35
[2017-08-21 09:52] VITALS: Ht 170.2 cm; Wt 54.4 kg
[2017-08-21 19:00] VITALS: BP 133/46
[2017-08-22 08:15] VITALS: BP 163/47
[2017-08-22 19:58] VITALS: BP 139/59
[2017-08-23 06:16] LABS: BASOPHILS 0.4 % (0-2); EOSINOPHILS 0.9 % (0-7); HEMATOCRIT 36.3 % (36.0-48.0); HEMOGLOBIN 12.1 g/dL (12-16); LYMPHOCYTES 30.7 % (15-50); MCH 30.8 pg (26.0-34.0); MCHC 33.3 g/dL (31.0-37.0); MCV 92.4 fL (80.0-100.0); MEAN PLATELET VOLUME 10.2 fL (7.4-10.4); MONOCYTES 22.3 % (2-11); NEUTROPHILS 45.7 % (40-80); PLATELET COUNT 327 10x3/uL (130-400); RBC 3.93 10x6/uL (4.00-5.40); WBC 4.5 10x3/uL (4.8-10.8)
[2017-08-23 06:47] LABS: ANION GAP 9.3 mmol/L (8-16); CARBON DIOXIDE 28.8 mmol/L (21.0-32.0); CREATININE - SERUM 1.5 mg/dL (0.6-1.3); POTASSIUM - SERUM 4.1 mmol/L (3.5-5.1)
[2017-08-23 19:00] VITALS: BP 92/44
[2017-08-24 09:14] VITALS: BP 127/39
[2017-08-24 20:30] VITALS: BP 134/40
[2017-08-25 08:45] VITALS: BP 143/53
[2017-08-25 19:55] VITALS: BP 125/66
[2017-08-26 06:45] LABS: BASOPHILS 0.4 % (0-2); EOSINOPHILS 2.6 % (0-7); HEMATOCRIT 34.1 % (36.0-48.0); HEMOGLOBIN 11.3 g/dL (12-16); LYMPHOCYTES 34.1 % (15-50); MCH 30.8 pg (26.0-34.0); MCHC 33.1 g/dL (31.0-37.0); MCV 92.9 fL (80.0-100.0); MEAN PLATELET VOLUME 9.9 fL (7.4-10.4); MONOCYTES 17.9 % (2-11); RBC 3.67 10x6/uL (4.00-5.40)
[2017-08-26 06:46] LABS: PLATELET COUNT 242 10x3/uL (130-400)
[2017-08-26 07:20] LABS: ANION GAP 11.3 mmol/L (8-16); CALCIUM 9.9 mg/dL (8.5-10.1); CARBON DIOXIDE 28.7 mmol/L (21.0-32.0); CREATININE - SERUM 2.1 mg/dL (0.6-1.3)
[2017-08-26 08:00] VITALS: BP 111/69
[2017-08-26 19:00] VITALS: BP 152/53
[2017-08-27 06:26] LABS: ANION GAP 7.5 mmol/L (8-16); CALCIUM 10.2 mg/dL (8.5-10.1); CARBON DIOXIDE 32.7 mmol/L (21.0-32.0); CREATININE - SERUM 1.8 mg/dL (0.6-1.3); POTASSIUM - SERUM 5.2 mmol/L (3.5-5.1)
[2017-08-27 08:00] VITALS: BP 137/44
[2017-08-27 20:00] VITALS: BP 148/41
[2017-08-28 08:00] VITALS: BP 133/29
[2017-08-28 19:00] VITALS: BP 140/52
[2017-08-29 08:00] VITALS: BP 121/37
[2017-08-29 19:00] VITALS: BP 123/38
[2017-08-30 08:00] VITALS: BP 129/71
[2017-08-30 20:48] VITALS: BP 136/48
[2017-08-31 08:02] VITALS: BP 116/34
[2017-09-01 12:01] VITALS: BP 131/34
[2017-09-02 05:02] LABS: BASOPHILS 0.2 % (0-2); EOSINOPHILS 0.9 % (0-7); HEMOGLOBIN 11.4 g/dL (12-16); IMMATURE GRANULOCYTES 0.3 % (0-5); LYMPHOCYTES 13.2 % (15-50); MCH 30.3 pg (26.0-34.0); MCHC 32.6 g/dL (31.0-37.0); MCV 93.1 fL (80.0-100.0); MEAN PLATELET VOLUME 10.3 fL (7.4-10.4); MONOCYTES 12.6 % (2-11); NEUTROPHILS 72.8 % (40-80); PLATELET COUNT 362 10x3/uL (130-400); RBC 3.76 10x6/uL (4.00-5.40); RDW 12.8 % (11.5-14.5); WBC 11.1 10x3/uL (4.8-10.8)
[2017-09-02 05:41] LABS: ANION GAP 9.9 mmol/L (8-16); CALCIUM 9.6 mg/dL (8.5-10.1); CARBON DIOXIDE 27.2 mmol/L (21.0-32.0); CREATININE - SERUM 1.6 mg/dL (0.6-1.3); POTASSIUM - SERUM 4.1 mmol/L (3.5-5.1)
[2017-09-02 07:00] VITALS: BP 133/70
== END 2017-09-02 13:03 | DRG 92 ==
LOC: D.REHAB 20:30
PROVIDERS: Emergency Medicine
DX: G72.89 Other specified myopathies (principal); N39.0 Urinary tract infection, site not specified; I49.5 Sick sinus syndrome; R41.82 Altered mental status, unspecified; M19.90 Unspecified osteoarthritis, unspecified site; I95.9 Hypotension, unspecified; Z95.0 Presence of cardiac pacemaker; F03.90 Unspecified dementia, unspecified severity, without behavioral disturbance, psychotic disturbance, mood disturbance, and anxiety; R53.1 Weakness; Z95.5 Presence of coronary angioplasty implant and graft; Z66 Do not resuscitate; I10 Essential (primary) hypertension; D63.8 Anemia in other chronic diseases classified elsewhere